=== PATIENT | male | born 1995 | race African-American/Black ===

== ENCOUNTER 2023-07-27 17:06 | Inpatient (IN) | payer OTHER, MEDICAID ==
[~2023-07-27] VITALS: Ht 170.2 cm; Wt 59.0 kg
[2023-07-27 18:05] LABS: HEMOGLOBIN. 15.4 g/dL (14.0-18.0); MEAN CORPUSCULAR HEMOGLOBIN 32.7 pg (28.0-32.0); MEAN CORPUSCULAR HGB CONC 34.3 g/dL (31.0-37.0); MEAN CORPUSCULAR VOLUME 95.3 fL (80.0-94.0); MEAN PLATELET VOLUME 8.7 fl (7.4-10.4); PLATELET 293 x1000/uL (130-400); RED BLOOD CELL COUNT 4.73 mill/uL (4.7-6.1); RED CELL DISTRIBUTION WIDTH 13.2 % (11.6-14.6); WHITE BLOOD COUNT 18.5 x1000/uL (4.5-11.0)
[2023-07-27 18:07] LABS: DIFFERENTIAL COMMENT 1
[2023-07-27 18:09] LABS: CHLORIDE 101 mEq/L (98-107); POTASSIUM 5.5 mEq/L (3.5-5.1); SODIUM 135 mEq/L (136-145)
[2023-07-27 18:12] LABS: CALCIUM 10.4 mg/dL (8.7-10.4); CARBON DIOXIDE 23 mEq/L (21-32)
[2023-07-27 18:17] LABS: CREATININE 0.9 mg/dL (0.6-1.3); GLUCOSE 131 mg/dL (70-105); UREA NITROGEN BLOOD 10 mg/dL (9-23)
[2023-07-27 18:19] LABS: ALANINE AMINOTRANSFERASE 19 IU/L (10-49); ALBUMIN 5.5 g/dL (3.2-4.8); ASPARTATE AMINOTRANSFERASE 45 IU/L (<34); BILIRUBIN DIRECT 0.3 mg/dL (<=3.0); BILIRUBIN TOTAL 0.9 mg/dL (0.1-1.0); PROTEIN TOTAL 8.9 g/dL (6.0-8.3)
[2023-07-27 18:38] LABS: ETHANOL BLOOD < 10 mg/dL (<10)
[2023-07-27 19:00] LABS: PLATELET ESTIMATE NORMAL
[2023-07-27 19:01] LABS: ANISOCYTOSIS 1+
[2023-07-27] MEDS: FAMOTIDINE 20MG TABLET PO ONE (19:26)
[2023-07-27] MEDS: LORAZEPAM 2MG/ML INJ IM ONE (19:27)
[2023-07-27] MEDS: HALOPERIDOL LACTATE 5MG/ML VIAL IM ONE (19:28)
[2023-07-27] MEDS: DIPHENHYDRAMINE 50MG/ML VIAL IM ONE (19:28)
[2023-07-27] MEDS: MAGNESIUM/ALUMINUM HYDROXIDE/SIMETHICONE 30ML UDC PO ONE (19:29)
[2023-07-27] MEDS: PANTOPRAZOLE SODIUM 40 MG/VIAL IV ONE (21:53)
[2023-07-27] MEDS: SODIUM CHLORIDE 0.9% 1,000 ML IV ONE ×2 (21:53→23:10)
[2023-07-27] MEDS: MIDAZOLAM HCL 2 MG/2 ML VIAL IV ONE (21:57)
[2023-07-28 03:00] VITALS: BP 136/67; PULSE 112; RESP 20; TEMP 97.9
[2023-07-28 03:30] VITALS: BP 130/67; PULSE 112; RESP 20; TEMP 97.9
[2023-07-28 04:08] LABS: CHLORIDE 106 mEq/L (98-107); POTASSIUM 4.2 mEq/L (3.5-5.1); SODIUM 140 mEq/L (136-145)
[2023-07-28 04:09] LABS: CARBON DIOXIDE 27 mEq/L (21-32)
[2023-07-28 04:10] LABS: CALCIUM 9.8 mg/dL (8.7-10.4)
[2023-07-28 04:14] LABS: CREATININE 0.9 mg/dL (0.6-1.3); GLUCOSE 93 mg/dL (70-105); UREA NITROGEN BLOOD 14 mg/dL (9-23)
[2023-07-28 05:21] LABS: BASOPHILS % 0.1 % (0.0-2.0); EOSINOPHILS % 0.2 % (0.0-5.0); HEMATOCRIT. 44.9 % (42.0-52.0); HEMOGLOBIN. 15.3 g/dL (14.0-18.0); LYMPHOCYTES % 10.1 % (20.0-50.0); MEAN CORPUSCULAR HEMOGLOBIN 32.3 pg (28.0-32.0); MEAN CORPUSCULAR VOLUME 94.9 fL (80.0-94.0); MEAN PLATELET VOLUME 9.1 fl (7.4-10.4); MONOCYTES % 10.4 % (2.0-8.0); NEUTROPHILS % 79.2 % (40.0-76.0); PLATELET 277 x1000/uL (130-400); RED BLOOD CELL COUNT 4.74 mill/uL (4.7-6.1); RED CELL DISTRIBUTION WIDTH 13.2 % (11.6-14.6)
[2023-07-28] MEDS ORDERED: MAGNESIUM/ALUMINUM HYDROXIDE/SIMETHICONE 30ML UDC PO PRN (07:15)
[2023-07-28] MEDS ORDERED: ONDANSETRON HCL 4MG/2ML INJ IV PRN (07:15)
[2023-07-28] MEDS ORDERED: HYDROCODONE/ACETAMINOPHEN 10/325MG TABLET PO PRN (07:15)
[2023-07-28] MEDS ORDERED: ACETAMINOPHEN 325MG TABLET PO PRN (07:15)
[2023-07-28] MEDS ORDERED: CLONIDINE 0.1MG TABLET PO PRN (07:15)
[2023-07-28] MEDS ORDERED: NALOXONE HCL 0.4MG/ML VIAL IV PRN (07:30)
[2023-07-28 08:38] VITALS: BP 139/82; PULSE 111
[2023-07-28] MEDS: LORAZEPAM 2MG/ML INJ IV PRN (11:34)
[2023-07-28] MEDS: PANTOPRAZOLE SODIUM 40 MG/VIAL IV SCH (11:35)
[2023-07-28] MEDS ORDERED: LORAZEPAM 2MG/ML INJ IV PRN (11:45)
[2023-07-28] MEDS: LORAZEPAM 2MG/ML INJ IV NR (12:35)
[2023-07-28 16:21] VITALS: BP 109/88; PULSE 81; TEMP 97.8
[2023-07-29] MEDS: HALOPERIDOL LACTATE 5MG/ML VIAL IM PRN (01:40)
[2023-07-29] MEDS: PANTOPRAZOLE SODIUM 40 MG/VIAL IV SCH (09:00)
[2023-07-29] MEDS: CEFTRIAXONE 1GM/50ML 50 ML IV SCH (10:28)
[2023-07-29 17:51] LABS: BASOPHILS % 0.2 % (0.0-2.0); EOSINOPHILS % 0.2 % (0.0-5.0); HEMATOCRIT. 44.1 % (42.0-52.0); HEMOGLOBIN. 15.1 g/dL (14.0-18.0); LYMPHOCYTES % 15.3 % (20.0-50.0); MEAN CORPUSCULAR HGB CONC 34.4 g/dL (31.0-37.0); MEAN PLATELET VOLUME 8.1 fl (7.4-10.4); MONOCYTES % 7.5 % (2.0-8.0); NEUTROPHILS % 76.8 % (40.0-76.0); PLATELET 230 x1000/uL (130-400); RED BLOOD CELL COUNT 4.59 mill/uL (4.7-6.1); RED CELL DISTRIBUTION WIDTH 13.3 % (11.6-14.6); WHITE BLOOD COUNT 8.3 x1000/uL (4.5-11.0)
[2023-07-29 17:56] LABS: CHLORIDE 106 mEq/L (98-107); SODIUM 136 mEq/L (136-145)
[2023-07-29 17:57] LABS: CALCIUM 9.7 mg/dL (8.7-10.4); CARBON DIOXIDE 26 mEq/L (21-32)
[2023-07-29 18:02] LABS: GLUCOSE 92 mg/dL (70-105); UREA NITROGEN BLOOD 13 mg/dL (9-23)
[2023-07-29 18:03] LABS: ASPARTATE AMINOTRANSFERASE 66 IU/L (<34)
[2023-07-29 18:04] LABS: ALBUMIN 4.9 g/dL (3.2-4.8); BILIRUBIN DIRECT 0.3 mg/dL (<=3.0); BILIRUBIN TOTAL 0.8 mg/dL (0.1-1.0); PHOSPHORUS 2.6 mg/dL (2.5-4.9)
[2023-07-29 18:31] LABS: ALANINE AMINOTRANSFERASE 22 IU/L (10-49)
[2023-07-29 20:00] VITALS: BP 113/56; PULSE 80; TEMP 97.8
[2023-07-29 20:24] VITALS: BP 119/56; PULSE 88; TEMP 98.2; O2SAT 98
== END 2023-07-29 21:26 | disposition home or self-care (01) | DRG 377 ==
LOC: ER 17:06 → EDBEDREQ 20:33 → 5WST 22:46 → EDBEDREQ 23:05 → 8WST 07-28 03:30
PROVIDERS: ADMIT Family Medicine Adult Medicine; ATTEND Family Medicine Adult Medicine
DX: K92.0 Hematemesis (principal); J18.9 Pneumonia, unspecified organism; K92.2 Gastrointestinal hemorrhage, unspecified; R62.50 Unspecified lack of expected normal physiological development in childhood; D72.829 Elevated white blood cell count, unspecified; Z78.1 Physical restraint status
CPT/HCPCS: 36415; 71045; 74176; 80048; 80076; 80320; 83735; 84100; 84145; 85025; 93970; 99291; C9113; J0696; J1200; J1630; J2060; J2250; J7030; G0480